=== PATIENT | female | born 1980 | race Caucasian/White ===

== ENCOUNTER 2017-03-20 17:01 | Emergency (ER) | payer MEDICAID ==
[2017-03-20 17:50] LABS: CALCIUM 9.1 mg/dL (8.5-10.1); CARBON DIOXIDE 25.9 mmol/L (21-32); CHLORIDE SERUM 103 mmol/L (98-107); CREATININE SERUM 0.6 mg/dL (0.6-1.0); GFR1 > 60 mL/min; GLUCOSE SERUM 95 mg/dL (74-106); POTASSIUM SERUM 3.8 mmol/L (3.5-5.1); SODIUM SERUM 138 mmol/L (136-145)
[2017-03-20 17:52] LABS: BASOPHIL % 0.4 % (0-2); PLATELET COUNT 231 x10^3mcL (130-400); RED CELL DISTRIBUTION WIDTH 12.9 % (11.5-14.5)
[2017-03-20 17:55] LABS: ALBUMIN 4.1 g/dL (3.4-5.0); ALKALINE PHOSPHATASE 51 U/L (46-116); ALT/SGPT 22 U/L (14-59); AST/SGOT 15 U/L (15-37); BILIRUBIN TOTAL 0.5 mg/dL (0.20-1.00); TOTAL PROTEIN, SERUM 7.9 g/dL (6.4-8.2)
[2017-03-20 18:34] VITALS: BP 143/99
== END 2017-03-20 18:56 | disposition home or self-care (01) ==
LOC: ED 17:01
PROVIDERS: Emergency Medicine
DX: R07.89 Other chest pain (principal); N63 Unspecified lump in breast
CPT/HCPCS: 83880; Q0092

== ENCOUNTER 2019-05-20 09:13 | Emergency (ER) | payer MEDICAID ==
[~2019-05-20] VITALS: Ht 160 cm; Wt 66.4 kg
[2019-05-20 09:17] VITALS: Ht 160 cm; Wt 66.4 kg
[2019-05-20 10:38] VITALS: BP 148/89
== END 2019-05-20 10:38 | disposition home or self-care (01) ==
LOC: ED 09:13
DX: J00 Acute nasopharyngitis [common cold] (principal); J30.9 Allergic rhinitis, unspecified
CPT/HCPCS: Q0092